=== PATIENT | male | born 1950 | race Two or more races ===

== ENCOUNTER 2020-08-23 10:02 | Emergency (ER) | payer OTHER ==
[~2020-08-23] VITALS: Ht 165.1 cm; Wt 109.4 kg
[2020-08-23 10:19] VITALS: BP 147/83
[2020-08-23] MEDS ORDERED: ASPI-1450 PO (10:21)
[2020-08-23] MEDS: PERTUSS(ACELL),DIPH,TET VAC/PF 0.5 ML SYRINGE IM. ONE (10:32)
== END 2020-08-23 11:46 | disposition home or self-care (01) ==
LOC: EMS 10:02
DX: S01.01XA Laceration without foreign body of scalp, initial encounter (principal); I10 Essential (primary) hypertension; Z79.82 Long term (current) use of aspirin; W19.XXXA Unspecified fall, initial encounter; Y93.89 Activity, other specified; Y92.89 Other specified places as the place of occurrence of the external cause; Y99.8 Other external cause status
CPT/HCPCS: 12002; 70450; 90471; 90715; 99284

== ENCOUNTER 2020-09-02 17:11 | Emergency (ER) | payer OTHER ==
[~2020-09-02] VITALS: Ht 165.1 cm; Wt 109.4 kg
[~2020-09-02 17:11] MED LIST: ASPI-1450 PO
[2020-09-02 17:54] VITALS: BP 132/80
== END 2020-09-02 18:00 | disposition home or self-care (01) ==
LOC: EMS 17:11
DX: S01.01XD Laceration without foreign body of scalp, subsequent encounter (principal); I10 Essential (primary) hypertension; X58.XXXD Exposure to other specified factors, subsequent encounter
CPT/HCPCS: 99281; Z7502